=== PATIENT | female | born 1975 ===

== ENCOUNTER 2020-11-10 10:23 | Day surgery (SDC) | payer OTHER ==
[2020-11-10] MEDS ORDERED: MORGIDOX100 MG PO (16:00)
[2020-11-10] MEDS ORDERED: NAPR500T14 PO (16:00)
== END 2020-11-10 19:40 | disposition home or self-care (01) ==
LOC: CIR.AMB 10:23
PROVIDERS: ATTEND Obstetrics & Gynecology
DX: D25.0 Submucous leiomyoma of uterus (principal); N84.0 Polyp of corpus uteri; Z20.822 Contact with and (suspected) exposure to COVID-19